=== PATIENT | female | born 1990 | race African-American/Black ===

== ENCOUNTER 2020-03-10 14:54 | Emergency (ER) | payer OTHER ==
[~2020-03-10] VITALS: Ht 167.6 cm; Wt 66.7 kg
--- NOTE | 2020-03-10 15:05 | NUR ---
Have had Back problems for 3yrs today after was working out worse -spasm. Patient a/ox4, ambulatory with steady gait. Needs attended, kept comfortable.
[2020-03-10] MEDS ORDERED: HYDROCODONE/APAP 5/325MG 1 EACH TABLET ONE (15:21)
[2020-03-10] MEDS ORDERED: KETOROLAC TROMETHAMINE INJ 30 MG/ML VIAL ONE (15:21)
[2020-03-10] MEDS ORDERED: ONDANSETRON 4 MG TAB.RAPDIS ONE (15:22)
[2020-03-10] MEDS ORDERED: KETOROLAC TROMETHAMINE INJ 60 MG/2 ML VIAL IM ONE (15:30)
[2020-03-10] MEDS ORDERED: HYDROCODONE/APAP 5/325MG 1 EACH TABLET PO ONE (15:30)
[2020-03-10] MEDS ORDERED: ONDANSETRON 4 MG TAB.RAPDIS SL ONE (15:30)
[2020-03-10 15:34] VITALS: BP 111/79
--- NOTE | 2020-03-10 15:34 | NUR ---
Patient ambulatory, discharged to home in stable condition. Written and verbal after care instructions given. Patient verbalizes understanding of instruction. Instructed not to drive.
== END 2020-03-10 15:35 | disposition home or self-care (01) ==
LOC: ER 14:58
DX: M54.42 Lumbago with sciatica, left side (principal); G89.29 Other chronic pain
CPT/HCPCS: 96372; 99283; J1885; Q0162

== ENCOUNTER 2020-10-03 11:29 | Emergency (ER) | payer OTHER ==
[~2020-10-03] VITALS: Ht 165.1 cm; Wt 68.0 kg
[2020-10-03 11:45] VITALS: BP 134/77
--- NOTE | 2020-10-03 12:57 | NUR ---
covid test done & sent to lab.
== END 2020-10-03 12:58 | disposition home or self-care (01) ==
LOC: ER 11:29
DX: U07.1 COVID-19 (principal)
CPT/HCPCS: 99283; C9803; U0003